=== PATIENT | female | born 1955 | race Caucasian/White ===

== ENCOUNTER 2019-01-27 15:10 | Emergency (ER) | payer OTHER ==
[2019-01-27 15:22] VITALS: BP 184/89
[2019-01-27] MEDS ORDERED: IBUPROFEN 800 MG TABLET PO STA (16:24)
[2019-01-27] MEDS ORDERED: oxyCODONE 5 MG TABLET PO STA (16:24)
[2019-01-27 16:31] LABS: BILIRUBIN,URINE NEGATIVE (NEGATIVE); GLUCOSE, URINE (UA) 250 mg/dL (NEGATIVE); KETONES,URINE (UA) 15 mg/dL (NEGATIVE); LEUKOCYTE ESTERASE, URINE SMALL (NEGATIVE); NITRITE,URINE NEGATIVE (NEGATIVE); OCCULT BLOOD,URINE LARGE (NEGATIVE); PH,URINE 5.5 PH (5.0-7.5); PROTEIN,URINE NEGATIVE (NEGATIVE); UROBILINOGEN,URINE 0.2 (NORMAL) E.U./dL (NORMAL)
[2019-01-27 16:34] LABS: CLARITY,URINE HAZY (CLEAR); HCG UR QUAL NEGATIVE
[2019-01-27 16:39] LABS: BACTERIA,URINE Rare /HPF (None Seen); RBC,URINE TNTC /HPF (0-5); SQUAMOUS EPITHELIAL CELL,UR FEW Squamous (<= Few)
--- NOTE | 2019-01-27 17:06 | ED Physician Documentation ---
PD HPI ABD PAIN - Stated complaint Stated Complaint: KIDNEY PAIN - Chief complaint Chief Complaint: Abd Pain - History obtained from History obtained from: Patient, Family - History of Present Illness Timing - onset: Today Timing - duration: Weeks (2) Timing - details: Abrupt onset, Gradual onset Pain level max: 8 Pain level now: 8 Quality: Aching, Pain Location: LLQ, Other (L flank) Improved by: Other (noting) Worsened by: Other (nothing) Associated symptoms: Nausea. No: Fever, Vomiting, Hematemesis, Diarrhea, Constipation, Melena, Hematochezia, Dysuria Similar symptoms before: Diagnosis (renal stones in the past. last 10 years ago. had lithotripsy in the past.) Recently seen: Not recently seen Review of Systems Constitutional: denies: Fever, Chills GI: reports: Nausea. denies: Vomiting : reports: Hematuria. denies: Dysuria, Frequency, Hesitancy Skin: denies: Rash Musculoskeletal: denies: Neck pain, Back pain Neurologic: denies: Headache PD PAST MEDICAL HISTORY - Past Medical History Past Medical History: Yes : Kidney stones - Past Surgical History Past Surgical History: No - Present Medications Home Medications: Ambulatory Orders Medication Instructions Recorded Confirmed Ibuprofen [Motrin] 800 mg PO Q8H PRN #30 tablet 01/27/19 Ondansetron Odt [Zofran] 4 mg TL Q6H PRN #10 tablet 01/27/19 Oxycodone HCl/Acetaminophen 1 - 2 each PO Q6H PRN #14 tablet 01/27/19 [Percocet 5-325 mg Tablet] - Allergies Allergies/Adverse Reactions: Allergies Allergy/AdvReac Type Severity Reaction Status Date / Time Penicillins Allergy Anaphylaxis Verified 01/27/19 15:22 - Social History Does the pt smoke?: No Smoking Status: Never smoker Does the pt drink ETOH?: Yes Does the pt have substance abuse?: No - Immunizations Immunizations are current?: Yes - POLST Patient has POLST: No PD ED PE NORMAL - Vitals Vital signs reviewed: Yes - General General: Alert and oriented X 3, No acute distress - HEENT HEENT: Moist mucous membranes - Neck Neck: Supple, no meningeal sign - Cardiac Cardiac: RRR - Respiratory Respiratory: No respiratory distress, Clear bilaterally - Abdomen Abdomen: Soft, Non tender, Non distended - Back Back: No CVA TTP, No spinal TTP - Derm Derm: Warm and dry - Neuro Neuro: Alert and oriented X 3 Results - Vitals Vitals: Vital Signs - 24 hr 01/27/19 15:18 Temperature 36.5 C Heart Rate 86 Respiratory 17 Rate Blood Pressure 184/89 H O2 Saturation 99 Oxygen O2 Source Room air - Labs Labs: Laboratory Tests 01/27/19 16:15 Urine Color YELLOW Urine Clarity HAZY Urine pH 5.5 Ur Specific [place] 1.025 Urine Protein NEGATIVE Urine Glucose (UA) 250 H Urine Ketones 15 H Urine Occult Blood LARGE H Urine Nitrite NEGATIVE Urine Bilirubin NEGATIVE Urine Urobilinogen 0.2 (NORMAL) Ur Leukocyte Esterase SMALL H Urine RBC TNTC H Urine WBC 4-5 Ur Squamous Epith Cells FEW Squamous Urine Crystals 3-5 Calcium Oxalate Urine Bacteria Rare Ur Microscopic Review INDICATED Urine Culture Comments INDICATED Urine HCG, Qual NEGATIVE - Rads (name of study) abd/pelvis CT Radiology: Prelim report reviewed, EMP read contemporaneously, See rad report (Mild left hydroureteronephrosis from a 3 mm ureteral calcification at L3-L4 level. 2. Right kidney 9 mm nonobstructing calcification. 3. Fatty hepatomegaly. 4. Diverticulosis ) PD MEDICAL DECISION MAKING - ED course Complexity details: reviewed results, re-evaluated patient, considered differential, d/w patient ED course: 63-year-old female with a left-sided ureteral stone. Pain well controlled here. No evidence of infection. We will continue pain control at home and encourage good water intake. We will follow-up with her doctor for further care. She is well-appearing, nontoxic. Afebrile. Patient counseled regarding signs and symptoms for which I believe and urgent re-evaluation would be necessary. Patient with good understanding of and agreement to plan and is comfortable going home at this time This document was made in part using voice recognition software. While efforts are made to proofread this document, sound alike and grammatical errors may occur. Departure - Departure Disposition: 01 Home, Self Care Clinical Impression: Left ureteral calculus Condition: Good Instructions: ED Stone Renal W Colic Follow-Up: your,doctor in 1 week [Other] Prescriptions: Ibuprofen [Motrin] 800 mg PO Q8H PRN #30 tablet PRN Reason: PAIN &/OR FEVER Ondansetron Odt [Zofran] 4 mg TL Q6H PRN #10 tablet PRN Reason: Nausea / Vomiting Oxycodone HCl/Acetaminophen [Percocet 5-325 mg Tablet] 1 - 2 each PO Q6H PRN #14 tablet PRN Reason: pain Comments: Return if you worsen. Use the medications as prescribed. You have a 3 mm stone on the left side. This should pass. There is also a 9 mm stone within your right kidney. Do not drink alcohol or drive while on narcotic pain medicine. Note that many narcotic pain relievers also contain tylenol/acetaminophen. Please ensure that your total dose of acetaminophen from all sources does not exceed 3 grams (3000mg) per day. You may constipated on this medication, take a stool softener such as "Colace" twice a day while you are on it. Also recommend a [id number]-qzu-[id number] laxative such as senna or MiraLAX any day that you do not have a bowel movement. If you received narcotic pain medication in the emergency department, do not drive or operate machinery for the next 24 hours.
--- NOTE | 2019-01-27 17:19 | CT Report ---
Reason: L flank pain, h/o renal stones Procedure Date: 01/27/2019 Accession Number: [id number] / [id number] Procedure: CT - Abdomen/Pelvis WO CPT Code: FULL RESULT: EXAM: CT ABDOMEN AND PELVIS EXAM DATE: 01/27/2019 04:45 PM. CLINICAL HISTORY: L flank pain, h/o renal stones. COMPARISONS: None. TECHNIQUE: Routine helical CT imaging was performed through the abdomen and pelvis. IV contrast: . Enteric contrast: No. Reconstructions: Coronal and sagittal. In accordance with CT protocol optimization, one or more of the following dose reduction techniques were utilized for this exam: automated exposure control, adjustment of mA and/or KV based on patient size, or use of iterative reconstructive technique. FINDINGS: Lung Bases: Bibasilar atelectasis. Elevated right hemidiaphragm. Small hiatal hernia Liver: Fatty infiltrated. Enlarged 22 cm. Gallbladder/Bile Ducts: None identified Spleen: Normal. Pancreas: Normal. Adrenal Glands: Normal. Kidneys: Right kidney nonobstructing 9 mm calcification. Left kidney mild left hydroureteronephrosis from a 3 mm ureteral calcification at L3-L4 level Peritoneal Cavity/Bowel: Diverticulosis. Tiny fat-containing umbilical hernia No free fluid, free air or adenopathy. No masses or acute inflammatory process. The appendix is well visualized and normal. Pelvic Organs: Normal. The bladder and visualized pelvic organs are within normal limits. Vasculature: No aneurysms or other significant abnormality. Bones: No significant abnormality. Other: None. IMPRESSION: 1. Mild left hydroureteronephrosis from a 3 mm ureteral calcification at L3-L4 level. 2. Right kidney 9 mm nonobstructing calcification. 3. Fatty hepatomegaly. 4. Diverticulosis RADIA
== END 2019-01-27 18:17 | disposition home or self-care (01) ==
LOC: ED 15:10
DX: N13.2 Hydronephrosis with renal and ureteral calculous obstruction (principal)
CPT/HCPCS: 74176; 81001; 81025; 87086; 99283; 99284; A9270; 81003

== ENCOUNTER 2022-04-08 16:28 | Emergency (ER) | payer OTHER ==
[2022-04-08] MEDS ORDERED: NITROGLYCERIN 2% PASTE TOP STA (16:40)
[2022-04-08] MEDS ORDERED: ASPIRIN CHEW 81 MG TABLET PO STA (16:40)
[2022-04-08] MEDS ORDERED: METOPROLOL 5 MG/5 ML VIAL IVP STA (16:40)
--- NOTE | 2022-04-08 16:43 | ED Physician Documentation ---
History of Present Illness - Stated complaint Stated Complaint: JAW/CHEST PX - History obtained from History obtained from: Patient, Family - Additonal information Additional information: 66-year-old woman presents by private vehicle with her for evaluation of jaw pain. She has no history of coronary disease but does have comorbidities including obesity, diabetes, hypercholesterolemia, and hypertension. She does not smoke. About 330 this afternoon developed severe bilateral jaw pain with upper back pain and some chest pressure. She had a similar milder episode last night that resolved without intervention after half an hour. It is associated with sweats but no nausea or shortness of breath. Review of Systems Ten Systems: 10 systems reviewed and negative Constitutional: denies: Fever, Chills Nose: denies: Rhinorrhea / runny nose, Congestion Respiratory: denies: Dyspnea, Cough PD PAST MEDICAL HISTORY - Past Medical History : Kidney stones - Past Surgical History Past Surgical History: No - Present Medications Home Medications: Ambulatory Orders Medication Instructions Recorded Confirmed Ibuprofen [Motrin] 800 mg PO Q8H PRN #30 tablet 01/27/19 Ondansetron Odt [Zofran] 4 mg TL Q6H PRN #10 tablet 01/27/19 Oxycodone HCl/Acetaminophen 1 - 2 each PO Q6H PRN #14 tablet 01/27/19 [Percocet 5-325 mg Tablet] - Allergies Allergies/Adverse Reactions: Allergies Allergy/AdvReac Type Severity Reaction Status Date / Time Penicillins Allergy Anaphylaxis Verified 01/27/19 15:22 - Social History Does the pt smoke?: No Smoking Status: Never smoker Does the pt drink ETOH?: Yes Does the pt have substance abuse?: No - Immunizations Immunizations are current?: Yes - POLST Patient has POLST: No PD ED PE NORMAL - Vitals Vital signs reviewed: Yes (Blood pressure in the 200/100 range) - General General: Alert and oriented X 3, No acute distress, Well developed/nourished - HEENT HEENT: PERRL, EOMI - Neck Neck: Supple, no meningeal sign, No bony TTP - Cardiac Cardiac: RRR, No murmur - Respiratory Respiratory: No respiratory distress, Clear bilaterally - Abdomen Abdomen: Non tender - Back Back: No CVA TTP, No spinal TTP - Derm Derm: Normal color, Warm and dry - Extremities Extremities: No edema, No calf tenderness / cord - Neuro Neuro: Alert and oriented X 3, Normal speech - Psych Psych: Normal mood, Normal affect Results - Vitals Vitals: Vital Signs - 24 hr 04/08/22 16:30 Temperature 37.2 C Heart Rate 86 Respiratory 19 Rate Blood Pressure 202/113 H O2 Saturation 97 Oxygen O2 Source Room air - EKG (time done) 1630 Rate: Rate (enter#) (94) Rhythm: NSR [place]: Normal Intervals: RBBB, Other (Left posterior fascicular block) Ischemia: No: ST elevation c/w ischemia, ST depression Compare to prior EKG: Old EKG unavailable (But patient thinks she recognizes the term right bundle branch block and left bundle branch block when I mention them, she thinks she has been told she already had this.) Computer interpretation: Agree with computer - Labs Labs: Laboratory Tests 04/08/22 04/08/22 04/08/22 16:39 16:39 16:39 WBC 12.8 H RBC 5.05 Hgb 14.5 Hct 44.8 MCV 88.7 MCH 28.7 MCHC 32.4 RDW 12.0 Plt Count 259 MPV 12.0 H Neut # (Auto) 6.8 H Lymph # (Auto) 4.5 H [place] # (Auto) 0.9 Eos # (Auto) 0.5 Baso # (Auto) 0.1 Absolute Nucleated RBC 0.00 Nucleated RBC % 0.0 Sodium 140 Potassium 3.7 Chloride 101 Carbon Dioxide 27 Anion Gap 12.0 BUN 17 Creatinine 0.8 Estimated GFR (MDRD) 72 L Glucose 325 H Calcium 9.0 Total Bilirubin 0.8 AST 17 ALT 22 Alkaline Phosphatase 95 Troponin I High Sens 189.9 H* Total Protein 7.2 Albumin 4.3 Globulin 2.9 Albumin/Globulin Ratio 1.5 Lipase 66 H - Rads (name of study) Single view chest x-ray demonstrates cardiomegaly without acute appearing findings. 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 She ruled in with regard to troponin, her initial troponin was 189 with normal being less than about 20. I had a long discussion with the patient and her . She will be waitlisted at multiple hospitals with cardiology coverage which we do not have. Pending that I will schedule medications including full dose Lovenox, aspirin, statin, metoprolol. Recent experience suggest that it may be a prolonged period of time before transfer to a higher level of care given [facility] capacity issues. - Critical Care Time(min): 40 Time Includes: Direct patient care, Review records, Reassess patient, Coordinate care, Medical consult Data interpretation: Labs, Pulse ox, CXR Procedures included in critical care time: Peripheral IV Procedures excluded from critical care time: EKG Departure - Departure Disposition: 02 Transfer Acute Care Hosp Clinical Impression: NSTEMI (non-ST elevated myocardial infarction) Condition: Serious
[2022-04-08 16:46] LABS: BASOPHILS # (AUTO) 0.1 10^3/uL (0.0-0.1); BASOPHILS % (AUTO) 0.5 %; EOSINOPHILS # (AUTO) 0.5 10^3/uL (0.0-0.7); HCT - HEMATOCRIT 44.8 % (37.0-47.0); HGB - HEMOGLOBIN 14.5 g/dL (12.0-16.0); LYMPHOCYTES # (AUTO) 4.5 10^3/uL (1.5-3.5); LYMPHOCYTES % (AUTO) 35.3 %; MEAN CORPUSCULAR HEMOGLOBIN 28.7 pg (27.0-31.0); MEAN CORPUSCULAR HGB CONC 32.4 g/dL (32.0-36.0); MEAN CORPUSCULAR VOLUME 88.7 fL (81.0-99.0); MONOCYTES # (AUTO) 0.9 10^3/uL (0.0-1.0); MONOCYTES % (AUTO) 6.7 %; NEUTROPHILS # (AUTO) 6.8 10^3/uL (1.5-6.6); NEUTROPHILS % (AUTO) 53.1 %; PLT - PLATELET COUNT 259 10^3/uL (130-450); RED BLOOD COUNT 5.05 10^6/uL (4.20-5.40); WHITE BLOOD COUNT 12.8 x10^3/uL (4.8-10.8)
[2022-04-08 17:04] LABS: ALBUMIN 4.3 g/dL (3.2-5.5); ALBUMIN/GLOBULIN RATIO 1.5 (1.0-2.2); BILIRUBIN,TOTAL 0.8 mg/dL (0.2-1.0); CREATININE 0.8 mg/dL (0.4-1.0); POTASSIUM 3.7 mmol/L (3.5-5.0); TOTAL PROTEIN 7.2 g/dL (6.7-8.2)
--- NOTE | 2022-04-08 17:25 | XRAY Report ---
PROCEDURE: Chest 1 View X-Ray INDICATIONS: Chest Pain TECHNIQUE: One view of the chest was acquired. COMPARISON: None FINDINGS: Surgical changes and devices: None. Lungs and pleura: No pleural effusions or pneumothorax. Lungs are clear. Mediastinum: Mediastinal contours appear normal. Heart size is enlarged. Bones and chest wall: No suspicious bony lesions. Overlying soft tissues appear unremarkable. IMPRESSION: Cardiomegaly. No acute pulmonary findings. Reviewed by: Socorro Hensley MD on 04/08/2022 5:24 PM PDT Approved by: Socorro Hensley MD on 04/08/2022 5:24 PM PDT Station ID: [id number]
[2022-04-08] MEDS ORDERED: ENOXAPARIN 100 MG/ML SYRINGE SUBQ SCH (17:30)
[2022-04-08] MEDS ORDERED: INSULIN 70/30 HUMAN 100 UNIT/1 ML 10 ML MDV SUBQ STA (17:39)
[2022-04-08] MEDS: ATORVASTATIN 40 MG TABLET PO SCH (17:52)
[2022-04-08] MEDS: ENOXAPARIN 100 MG/ML SYRINGE SUBQ SCH (17:53)
[2022-04-08 19:26] LABS: B. PARAPERTUSSIS- RESP PCR PAN NOT DETECTED; B. PERTUSSIS- RESP PCR PANEL NOT DETECTED; C. PNEUMONIAE- RESP PCR PANEL NOT DETECTED; CORONAVIRUS 229E-RESP PCR NOT DETECTED; CORONAVIRUS HKU1-RESP PCR NOT DETECTED; CORONAVIRUS NL63-RESP PCR NOT DETECTED; CORONAVIRUS OC43-RESP PCR NOT DETECTED; HUMAN METAPNEUMOVIRUS NOT DETECTED; INFLUENZA A- RESP PCR PANEL NOT DETECTED; INFLUENZA B - RESP PCR PANEL NOT DETECTED; M. PNEUMONIAE- RESP PCR PANEL NOT DETECTED; PARAINFLUENZA VIRUS 1 NOT DETECTED; PARAINFLUENZA VIRUS 2 NOT DETECTED; PARAINFLUENZA VIRUS 3 NOT DETECTED; PARAINFLUENZA VIRUS 4 NOT DETECTED; RHINOVIRUS/ENTEROVIRUS NOT DETECTED; RSV- RESP PCR PANEL NOT DETECTED; SARS-CoV-2 -RESP PCR PANEL NOT DETECTED
[2022-04-08] MEDS: METOPROLOL TARTRATE 50 MG TABLET PO SCH (20:56)
[2022-04-09 05:21] LABS: BASOPHILS # (AUTO) 0.1 10^3/uL (0.0-0.1); BASOPHILS % (AUTO) 0.4 %; EOSINOPHILS # (AUTO) 0.4 10^3/uL (0.0-0.7); EOSINOPHILS % (AUTO) 3.7 %; HCT - HEMATOCRIT 42.4 % (37.0-47.0); HGB - HEMOGLOBIN 13.5 g/dL (12.0-16.0); LYMPHOCYTES # (AUTO) 4.8 10^3/uL (1.5-3.5); LYMPHOCYTES % (AUTO) 41.9 %; MEAN CORPUSCULAR HEMOGLOBIN 28.8 pg (27.0-31.0); MEAN CORPUSCULAR HGB CONC 31.8 g/dL (32.0-36.0); MEAN CORPUSCULAR VOLUME 90.6 fL (81.0-99.0); MEAN PLATELET VOLUME 11.9 fL (7.9-10.8); MONOCYTES # (AUTO) 0.8 10^3/uL (0.0-1.0); NEUTROPHILS # (AUTO) 5.4 10^3/uL (1.5-6.6); NEUTROPHILS % (AUTO) 46.8 %; PLT - PLATELET COUNT 223 10^3/uL (130-450); RED BLOOD COUNT 4.68 10^6/uL (4.20-5.40); RED CELL DISTRIBUTION WIDTH 12.1 % (12.0-15.0); WHITE BLOOD COUNT 11.5 x10^3/uL (4.8-10.8)
[2022-04-09] MEDS ORDERED: ASPIRIN CHEW 81 MG TABLET PO SCH (09:00)
[2022-04-09] MEDS: ENOXAPARIN 100 MG/ML SYRINGE SUBQ SCH ×2 (09:19→21:07)
[2022-04-09] MEDS: METOPROLOL TARTRATE 50 MG TABLET PO SCH ×2 (09:19→21:08)
[2022-04-09] MEDS: ATORVASTATIN 40 MG TABLET PO SCH (09:20)
--- NOTE | 2022-04-09 11:53 | ED Physician Documentation ---
ED Addendum - Addendum Addendum: Patient was seen on morning rounds. S - Patient denies any chest pain. Was able to get a little sleep last night. Denies any difficulty breathing. O - Vital signs are stable. Lungs are clear. Patient sitting upright on the edge of the bed. A - NSTEMI P - Pending transfer to facility with cardiology capabilities. Echo was also ordered for this morning.
--- NOTE | 2022-04-10 00:13 | ED Physician Documentation ---
ED Addendum - Addendum Addendum: 04/10/22 00:11 I was contacted by Dr. Weinberg , cardiology home paraprofessional at [facility] (a bed has become available there). He agrees transfer to his facility is appropriate, hospitalist to admit. I then discussed the case with Dr. Lacy (hospitalist at [facility]), accept transfer
[2022-04-10 00:35] VITALS: BP 156/83
[2022-04-10] MEDS ORDERED: LEVOTHYROXINE 112 MCG TABLET PO SCH (07:00)
== END 2022-04-10 01:25 | disposition short-term general hospital (02) ==
LOC: ED 16:28
DX: I21.4 Non-ST elevation (NSTEMI) myocardial infarction (principal); Z20.822 Contact with and (suspected) exposure to COVID-19
CPT/HCPCS: 36415; 71045; 80053; 83690; 84484; 85025; 87633; 93005; 93306; 96372; 96374; 99285; 99291; A9270; J1650; 80048